=== PATIENT | female | born 1995 | race American Indian/Alaskan Native ===

== ENCOUNTER 2020-01-08 13:27 | Emergency (ER) | payer SELFPAY ==
[2020-01-08 13:34] VITALS: BP 112/81
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
== END 2020-01-08 15:00 | disposition left against medical advice (07) ==
LOC: ED 13:27
DX: M25.511 Pain in right shoulder (principal); Z53.21 Procedure and treatment not carried out due to patient leaving prior to being seen by health care provider